=== PATIENT | male | born 1955 | race African-American/Black ===

== ENCOUNTER 2020-10-27 17:04 | Inpatient (IN) | payer MEDICARE, MEDICAID ==
[~2020-10-27] VITALS: Ht 182.9 cm; Wt 97.3 kg
[2020-10-27] MEDS ORDERED: FAMOTIDINE 20MG TABLET PO SCH (18:15)
[2020-10-27 18:19] LABS: BASOPHILS % 0.9 % (0.0-2.0); LYMPHOCYTES % 17.7 % (20.0-50.0); MEAN CORPUSCULAR HEMOGLOBIN 29.2 pg (28.0-32.0); MEAN PLATELET VOLUME 9.1 fl (7.4-10.4); MONOCYTES % 10.3 % (2.0-8.0); NEUTROPHILS % 70.1 % (40.0-76.0); PLATELET 272 x1000/uL (130-400); RED BLOOD CELL COUNT 4.45 mill/uL (4.7-6.1); RED CELL DISTRIBUTION WIDTH 13.6 % (11.6-14.6)
[2020-10-27 18:29] LABS: CHLORIDE 110 mEq/L (98-107)
[2020-10-28] MEDS ORDERED: LABETALOL 5MG/ML SYR 20 MG/4 ML SYRINGE IV ONE (00:15)
[2020-10-28] MEDS ORDERED: GUAIFENESIN 200MG/10ML SUGAR FREE UDC PO PRN (11:15)
[2020-10-28] MEDS ORDERED: ACETAMINOPHEN 650MG SUPP PR PRN (11:15)
[2020-10-28] MEDS ORDERED: CLONIDINE 0.1MG TABLET PO PRN (11:15)
[2020-10-28] MEDS ORDERED: ACETAMINOPHEN 650MG/20.3ML UDC GT PRN (11:15)
[2020-10-28] MEDS ORDERED: DIPHENHYDRAMINE 50MG/ML VIAL IV PRN (11:15)
[2020-10-28] MEDS ORDERED: HYDROCODONE/ACETAMINOPHEN 5/325MG TABLET PO PRN (11:15)
[2020-10-28] MEDS ORDERED: MAGNESIUM/ALUMINUM HYDROXIDE/SIMETHICONE 30ML UDC PO PRN (11:15)
[2020-10-28] MEDS ORDERED: ONDANSETRON HCL 4MG/2ML INJ IV PRN (11:15)
[2020-10-28] MEDS ORDERED: DOCUSATE SODIUM 100MG CAPSULE PO PRN (11:15)
[2020-10-28] MEDS ORDERED: IPRATROPIUM/ALBUTEROL 0.5-3(2.5)MG/3ML NEB NEB PRN (11:15)
[2020-10-28] MEDS ORDERED: NA PHOS,M-B/NA PHOS,DI-BA ENEMA 118ML PR PRN (11:15)
[2020-10-28] MEDS ORDERED: LORAZEPAM 0.5MG TABLET PO PRN (11:15)
[2020-10-28] MEDS: ASPIRIN 81MG EC TABLET PO SCH (13:11)
[2020-10-28] MEDS: ENOXAPARIN 40MG/0.4ML SYR SUBCUT SCH (13:12)
[2020-10-28] MEDS: FAMOTIDINE 20MG/2ML VIAL IV SCH (13:12)
[2020-10-28] MEDS: AMLODIPINE 2.5MG TABLET PO SCH (14:17)
[2020-10-28 22:15] VITALS: BP 145/88
[2020-10-29] VITALS: BP 148/89
[2020-10-29 00:22] LABS: BASOPHILS % 1.2 % (0.0-2.0); EOSINOPHILS % 2.8 % (0.0-5.0); LYMPHOCYTES % 32.7 % (20.0-50.0); MEAN CORPUSCULAR HEMOGLOBIN 29.2 pg (28.0-32.0); MEAN CORPUSCULAR VOLUME 89.9 fL (80.0-94.0); MONOCYTES % 8.5 % (2.0-8.0); NEUTROPHILS % 54.8 % (40.0-76.0); PLATELET 292 x1000/uL (130-400); RED BLOOD CELL COUNT 4.45 mill/uL (4.7-6.1); RED CELL DISTRIBUTION WIDTH 13.5 % (11.6-14.6)
[2020-10-29 00:43] LABS: CREATINE KINASE 488 IU/L (39-308)
[2020-10-29 00:44] LABS: CREATINE KINASE MB FRACTION 4.5 ng/mL (0.5-3.6)
[2020-10-29 00:56] LABS: FERRITIN 366 ng/mL (22-322)
[2020-10-29 01:08] LABS: HEPATITIS B SURFACE ANTIGEN NEGATIVE
[2020-10-29 01:20] LABS: D-DIMER 0.61 mg/L FEU (<0.50); PROTHROMBIN TIME 10.9 sec (9.6-11.0)
[2020-10-29 01:48] LABS: VITAMIN B12 SERUM 643 pg/mL (211-911)
[2020-10-29 04:00] VITALS: BP 141/91
[2020-10-29 07:19] LABS: BASOPHILS % 1.3 % (0.0-2.0); EOSINOPHILS % 2.7 % (0.0-5.0); HEMATOCRIT. 40.7 % (42.0-52.0); HEMOGLOBIN. 13.2 g/dL (14.0-18.0); LYMPHOCYTES % 28.2 % (20.0-50.0); MEAN CORPUSCULAR HEMOGLOBIN 29.2 pg (28.0-32.0); MEAN CORPUSCULAR VOLUME 90.2 fL (80.0-94.0); MEAN PLATELET VOLUME 9.1 fl (7.4-10.4); MONOCYTES % 11.1 % (2.0-8.0); NEUTROPHILS % 56.7 % (40.0-76.0); PLATELET 272 x1000/uL (130-400); RED BLOOD CELL COUNT 4.52 mill/uL (4.7-6.1); RED CELL DISTRIBUTION WIDTH 13.6 % (11.6-14.6)
[2020-10-29 07:40] LABS: CHLORIDE 103 mEq/L (98-107)
[2020-10-29 07:47] LABS: LDL CHOLESTEROL 77 mg/dL (5-100)
[2020-10-29 07:49] LABS: T4 FREE 1.05 ng/dL (0.76-1.46)
[2020-10-29 07:53] LABS: HDL CHOLESTEROL 37 mg/dL (40-59)
[2020-10-29 08:00] VITALS: BP 126/83
[2020-10-29 08:07] LABS: HEPATITIS A AB IGM NEGATIVE (NEGATIVE)
[2020-10-29] MEDS: ASPIRIN 81MG EC TABLET PO SCH (08:49)
[2020-10-29] MEDS: FAMOTIDINE 20MG/2ML VIAL IV SCH (08:49)
[2020-10-29] MEDS: NICOTINE 14MG PATCH TD SCH (08:59)
[2020-10-29 11:40] LABS: CLARITY URINE CLEAR (CLEAR); COLOR URINE YELLOW (YELLOW); KETONES URINE NEGATIVE (NEGATIVE); LEUKOCYTE ESTERASE URINE NEGATIVE (NEGATIVE); NITRITE URINE NEGATIVE (NEGATIVE); OCCULT BLOOD URINE NEGATIVE (NEGATIVE); PH URINE 6.5 (4.5-8.0); PROTEIN URINE NEGATIVE (NEGATIVE)
[2020-10-29 12:01] LABS: *AMPHETAMINES SCREEN URINE NEGATIVE (NEGATIVE); *BARBITURATES SCREEN URINE NEGATIVE (NEGATIVE); *BENZODIAZEPINES SCREEN URINE NEGATIVE (NEGATIVE); *COCAINE SCREEN URINE PRESUMTIVE POSITIVE (NEGATIVE); CANNABINOID URINE SCREEN NEGATIVE (NEGATIVE); METHADONE URINE SCREEN NEGATIVE (NEGATIVE); PHENCYCLIDINE URINE SCREEN NEGATIVE (NEGATIVE)
[2020-10-29 12:02] LABS: OPIATES URINE SCREEN NEGATIVE (NEGATIVE)
[2020-10-29] MEDS: AMLODIPINE 2.5MG TABLET PO SCH (12:51)
[2020-10-29] MEDS: ENOXAPARIN 40MG/0.4ML SYR SUBCUT SCH (12:52)
[2020-10-29] MEDS ORDERED: ASPI-1497 MT (13:27)
[2020-10-29] MEDS ORDERED: ATOR10TA MT (13:27)
[2020-10-29] MEDS ORDERED: AMLO5TAB4 MT (13:27)
[2020-10-29] MEDS ORDERED: NICO-645 TP (13:27)
[2020-10-29 13:54] VITALS: BP 121/88
== END 2020-10-29 15:24 | disposition home or self-care (01) | DRG 292 ==
LOC: ER 17:04 → MICUSO 10-28 00:41 → EDBEDREQ 10-28 00:46 → EDBEDREQDT 10-28 00:46 → EDBEDREQTM 10-28 00:46 → 8WST 10-28 14:06 → MICUSO 10-28 14:15 → 8WST 10-28 20:27
PROVIDERS: ADMIT Internal Medicine; ATTEND Internal Medicine
DX: I11.0 Hypertensive heart disease with heart failure (principal); J98.11 Atelectasis; J44.1 Chronic obstructive pulmonary disease with (acute) exacerbation; D64.9 Anemia, unspecified; I50.43 Acute on chronic combined systolic (congestive) and diastolic (congestive) heart failure; E66.09 Other obesity due to excess calories; E78.00 Pure hypercholesterolemia, unspecified; E78.5 Hyperlipidemia, unspecified; Z20.822 Contact with and (suspected) exposure to COVID-19; F14.10 Cocaine abuse, uncomplicated; F17.210 Nicotine dependence, cigarettes, uncomplicated; I45.10 Unspecified right bundle-branch block; R73.9 Hyperglycemia, unspecified; R74.01 Elevation of levels of liver transaminase levels; Z71.51 Drug abuse counseling and surveillance of drug abuser; Z79.899 Other long term (current) drug therapy; Z79.1 Long term (current) use of non-steroidal anti-inflammatories (NSAID); Z68.29 Body mass index [BMI] 29.0-29.9, adult; Z71.3 Dietary counseling and surveillance
CPT/HCPCS: 36415; 71045; 80053; 80061; 80305; 81003; 82550; 82553; 82607; 82728; 83880; 84439; 84443; 84484; 85025; 85379; 86705; 86709; 86803; 87340; 87426; 93005; 93970; 97161; 99291; J1650; J3490